=== PATIENT | male | born 1970 | race Caucasian/White ===

== ENCOUNTER 2017-03-09 15:08 | Inpatient (IN) | payer MEDICAID ==
[~2017-03-09] VITALS: Ht 177.8 cm; Wt 96.2 kg
[2017-03-09] MEDS ORDERED: HYDROmorphone 1 MG/ML, 1ML IVPush PRN (16:00)
[2017-03-09] MEDS ORDERED: ONDANSETRON 2MG/ML, 2ML IVPush ONE (16:00)
[2017-03-09] MEDS ORDERED: FAMOTIDINE 20 MG/2 ML IVP ONE (16:00)
[2017-03-09] MEDS ORDERED: SODIUM CHLORIDE FLUSH 10ML SYR IVF ONE (16:00)
[2017-03-09] MEDS ORDERED: THIAMINE 100 MG in SODIUM CHLORIDE 0.9% 50 ML IVPB ONE (16:00)
[2017-03-09] MEDS ORDERED: SODIUM CHLORIDE 0.9% 1,000ML IVBOLUS ONE (16:00)
[2017-03-09] MEDS ORDERED: LORazepam 2 MG/ML, 1ML IVPush ONE (16:00)
[2017-03-09] MEDS ORDERED: FAMOTIDINE 20 MG/2 ML ONE (16:08)
[2017-03-09] MEDS ORDERED: ONDANSETRON 2MG/ML, 2ML ONE (16:08)
[2017-03-09] MEDS ORDERED: LORazepam 2 MG/ML, 1ML ONE (16:10)
[2017-03-09 16:19] LABS: ASPARTATE AMINO TRANSFERASE 177 U/L (15-37); BLOOD UREA NITROGEN 14 mg/dL (7-18)
[2017-03-09 16:36] LABS: PATH.CAST-FLAG NOT PRESENT; SPERM-FLAG NOT PRESENT; SRC-FLAG NOT PRESENT; XTAL-FLAG NOT PRESENT; YLC-FLAG NOT PRESENT
[2017-03-09] MEDS: NS + 20MEQ KCL 1,000 ML IV SCH (16:43)
[2017-03-09] MEDS ORDERED: OXYcodone IR 5MG TABLET PO PRN (17:00)
[2017-03-09] MEDS ORDERED: ONDANSETRON 2MG/ML, 2ML IVP PRN (17:00)
[2017-03-09] MEDS ORDERED: hydrALAzine 20 MG/ML, 1ML IV PRN (17:00)
[2017-03-09] MEDS ORDERED: ACETAMINOPHEN 325 MG TABLET PO PRN (17:00)
[2017-03-09] MEDS ORDERED: POLYETHYLENE GLYCOL 17 GM PACKET PO PRN (17:00)
[2017-03-09] MEDS ORDERED: LORazepam 1MG TABLET PO PRN (17:00)
[2017-03-09] MEDS ORDERED: LORazepam 2 MG/ML, 1ML IV PRN (17:00)
[2017-03-09] MEDS ORDERED: ENALAPRILAT 1.25 MG/ML, 2ML IV PRN (17:00)
[2017-03-09] MEDS ORDERED: MORPHINE SULFATE 4 MG/ML, 1ML IVPush PRN (17:00)
[2017-03-09] MEDS ORDERED: ENOXAPARIN 40 MG/0.4 ML SQ SCH (17:00)
[2017-03-09] MEDS ORDERED: LABETALOL 5MG/ML, 20ML IVPush PRN (17:00)
[2017-03-09] MEDS ORDERED: DOCUSATE 100 MG CAPSULE PO PRN (17:00)
[2017-03-09] MEDS ORDERED: OMNIPAQUE 350 MG/ML, 100ML BOTTLE ONE (17:06)
[2017-03-09 17:57] VITALS: BP 138/86
[2017-03-09] MEDS: LORazepam 2 MG/ML, 1ML IV PRN ×3 (18:23→23:45)
[2017-03-09] MEDS: POTASSIUM CHLORIDE 20 MEQ, MAGNESIUM SULFATE 1 GM, THIAMINE 100 MG, FOLIC ACID 1 MG, MV... IV SCH (18:43)
[2017-03-09 19:35] VITALS: BP 139/83
[2017-03-09] MEDS: PANTOPRAZOLE 40 MG IV IVP SCH (23:46)
[2017-03-10 01:42] VITALS: BP 120/76
[2017-03-10] MEDS: NS + 20MEQ KCL 1,000 ML IV SCH ×3 (02:19→14:20)
[2017-03-10] MEDS: LORazepam 2 MG/ML, 1ML IV PRN ×3 (05:35→11:08)
[2017-03-10 05:57] LABS: BLOOD UREA NITROGEN 11 mg/dL (7-18)
[2017-03-10 06:09] LABS: ASPARTATE AMINO TRANSFERASE 152 U/L (15-37)
[2017-03-10 06:35] VITALS: BP 125/79
[2017-03-10] MEDS: PANTOPRAZOLE 40 MG IV IVP SCH ×2 (08:30→21:02)
[2017-03-10] MEDS: SENNA/DOCUSATE TABLET PO SCH (08:31)
[2017-03-10] MEDS: NICOTINE 14MG/24 HR PATCH.TD24 TD SCH (08:31)
[2017-03-10 12:30] VITALS: BP 143/93
[2017-03-10] MEDS: LORazepam 0.5MG TABLET PO PRN (13:13)
[2017-03-10 18:31] VITALS: BP 134/76
[2017-03-10] MEDS: POTASSIUM CHLORIDE 20 MEQ, MAGNESIUM SULFATE 1 GM, THIAMINE 100 MG, FOLIC ACID 1 MG, MV... IV SCH (18:35)
[2017-03-10] MEDS: LORazepam 1MG TABLET PO PRN (21:31)
[2017-03-11 00:46] VITALS: BP 125/80
[2017-03-11] MEDS ORDERED: POTASSIUM CHLORIDE 20 MEQ in SODIUM CHLORIDE 0.9% 1,000 ML IV ONE (01:30)
[2017-03-11] MEDS: LORazepam 2 MG/ML, 1ML IV PRN (02:18)
[2017-03-11 05:01] LABS: BLOOD UREA NITROGEN 8 mg/dL (7-18)
[2017-03-11 05:04] LABS: ASPARTATE AMINO TRANSFERASE 110 U/L (15-37)
[2017-03-11 06:45] VITALS: BP 127/82
[2017-03-11] MEDS: SENNA/DOCUSATE TABLET PO SCH (09:00)
[2017-03-11] MEDS: NICOTINE 14MG/24 HR PATCH.TD24 TD SCH (09:07)
[2017-03-11] MEDS: PANTOPRAZOLE 40 MG IV IVP SCH ×2 (09:07→19:40)
[2017-03-11] MEDS: LORazepam 0.5MG TABLET PO PRN (09:21)
[2017-03-11 13:10] VITALS: BP 136/80
[2017-03-11] MEDS: LORazepam 1MG TABLET PO PRN ×2 (15:05→19:40)
[2017-03-11] MEDS ORDERED: DIPHENHYDRAMINE 25 MG CAPSULE PO PRN (17:00)
[2017-03-11] MEDS: POTASSIUM CHLORIDE 20 MEQ TAB.ER.PRT PO SCH (17:45)
[2017-03-11 18:59] VITALS: BP 130/87
[2017-03-12 00:59] VITALS: BP 128/82
[2017-03-12 07:18] VITALS: BP 136/93
[2017-03-12] MEDS: POTASSIUM CHLORIDE 20 MEQ TAB.ER.PRT PO SCH (08:15)
[2017-03-12] MEDS: PANTOPRAZOLE 40 MG IV IVP SCH (08:15)
[2017-03-12] MEDS: SENNA/DOCUSATE TABLET PO SCH (08:15)
[2017-03-12] MEDS: NICOTINE 14MG/24 HR PATCH.TD24 TD SCH (08:15)
[2017-03-12] MEDS: LORazepam 1MG TABLET PO PRN (08:26)
[2017-03-12] MEDS ORDERED: PNEUMOCOCCAL 23 VACCINE IM-VACC ONE (13:00)
[2017-03-12] MEDS ORDERED: LORA-445 PO (13:14)
[2017-03-12] MEDS ORDERED: NICO1PAT4 TD (13:14)
[2017-03-12] MEDS ORDERED: OXYC5TAB3 PO (13:14)
== END 2017-03-12 14:02 | disposition home or self-care (01) | DRG 897 ==
LOC: ED 16:26 → EDIP 16:27 → SUATTDRO 16:30 → ED 17:00 → 3NE 17:45
PROVIDERS: ADMIT Family Medicine; ATTEND Family Medicine
DX: F10.239 Alcohol dependence with withdrawal, unspecified (principal); K29.20 Alcoholic gastritis without bleeding; F17.210 Nicotine dependence, cigarettes, uncomplicated; R13.10 Dysphagia, unspecified; Z87.11 Personal history of peptic ulcer disease; J02.9 Acute pharyngitis, unspecified
CPT/HCPCS: 36415; 74177; 80053; 81001; 83605; 83690; 83735; 85025; 87081; 87324; 87880; 93005; 96365; 96375; J2405; J3411; J3475; J3480; Q9967; C9113; J2060; J7030; Q0163; S0028

== ENCOUNTER 2017-03-17 10:45 | Emergency (ER) | payer MEDICAID ==
[~2017-03-17] VITALS: Ht 177.8 cm; Wt 96.1 kg
[~2017-03-17 10:45] MED LIST: LORA-445 PO; NICO1PAT4 TD; OXYC5TAB3 PO
[2017-03-17] MEDS ORDERED: SODIUM CHLORIDE 0.9% 1,000ML IVBOLUS ONE (12:00)
[2017-03-17] MEDS ORDERED: ONDANSETRON 2MG/ML, 2ML IVPush ONE (12:00)
[2017-03-17] MEDS ORDERED: LORazepam 2 MG/ML, 1ML IVPush ONE (12:00)
[2017-03-17] MEDS ORDERED: SODIUM CHLORIDE FLUSH 10ML SYR IVF ONE (12:00)
[2017-03-17] MEDS ORDERED: LORazepam 2 MG/ML, 1ML ONE (12:28)
[2017-03-17] MEDS ORDERED: ONDANSETRON 2MG/ML, 2ML ONE (12:28)
[2017-03-17 12:29] LABS: BLOOD UREA NITROGEN 13 mg/dL (7-18)
[2017-03-17 12:34] LABS: ASPARTATE AMINO TRANSFERASE 83 U/L (15-37)
[2017-03-17] MEDS ORDERED: OMNIPAQUE 350 MG/ML, 100ML BOTTLE ONE (13:37)
[2017-03-17 15:45] VITALS: BP 126/81
[2017-03-17] MEDS ORDERED: CHLORDIAZEPOXIDE 25 MG CAPSULE PO STA (15:56)
== END 2017-03-17 16:10 | disposition home or self-care (01) ==
LOC: ED 12:04
DX: R11.2 Nausea with vomiting, unspecified (principal); R19.7 Diarrhea, unspecified
CPT/HCPCS: 36415; 74174; 80053; 81003; 83605; 83690; 85025; 85610; 93005; 96361; 96374; 96375; 99285; J2060; J2405; J7030; Q9967

== ENCOUNTER 2018-07-16 13:56 | Observation (INO) | payer MEDICAID ==
[~2018-07-16] VITALS: Ht 177.8 cm; Wt 90.0 kg
[~2018-07-16 13:56] MED LIST changes: +NICO-486 TD; -NICO1PAT4 TD
[2018-07-16 15:01] LABS: BASOPHILS # (AUTO) 0.03 x10^3/uL (0-0.1); BASOPHILS % (AUTO) 0 % (0-1); EOSINOPHILS # (AUTO) 0.15 x10^3/uL (0-0.4); EOSINOPHILS % (AUTO) 2 % (1-7); LYMPHOCYTES # (AUTO) 1.72 x10^3/uL (1-3.4); LYMPHOCYTES % (AUTO) 23 % (22-44); MD NO; MEAN CORPUSCULAR VOLUME 99.9 fL (81-97); MONOCYTES # (AUTO) 0.69 x10^3/uL (0.2-0.8); MONOCYTES % (AUTO) 9 % (2-9); NEUTROPHILS # (AUTO) 4.86 x10^3/uL (1.8-6.8); NEUTROPHILS % (AUTO) 65 % (42-75); PLATELET COUNT 280 x10^3/uL (130-400); RED CELL DISTRIBUTION WIDTH 14.6 % (9.4-14.8)
[2018-07-16 15:12] LABS: ANION GAP 6 mmol/L (5-15); CHLORIDE 106 mmol/L (98-107); CREATININE 1.06 mg/dL (0.7-1.3); SALICYLATE LEVEL 3.6 mg/dL (2.8-20.0)
[2018-07-16 15:13] LABS: ACETAMINOPHEN < 2 mcg/mL (10-30)
[2018-07-16 16:24] LABS: AMPHETAMINE SCREEN, URINE Negative (Negative); BARBITURATE SCREEN, URINE Negative (Negative); BENZODIAZEPINE SCREEN, URINE Negative (Negative); CANNABINOID SCREEN, URINE Positive (Negative); COCAINE SCREEN, URINE Negative (Negative); METHADONE SCREEN, URINE Negative (Negative); OPIATE SCREEN, URINE Negative (Negative)
[2018-07-16] MEDS ORDERED: ACETAMINOPHEN 500 MG TABLET PO ONE (17:00)
[2018-07-16] MEDS ORDERED: ACETAMINOPHEN 500 MG TABLET ONE (17:41)
[2018-07-16] MEDS ORDERED: LORazepam 2 MG/ML, 1ML IM PRN (20:00)
[2018-07-16] MEDS ORDERED: NICOTINE 7 MG/24 HR PATCH.TD24 TD SCH (20:00)
[2018-07-16] MEDS ORDERED: LORazepam 1MG TABLET PO PRN (20:00)
[2018-07-16] MEDS ORDERED: ACETAMINOPHEN 325 MG TABLET PO PRN (20:00)
[2018-07-16] MEDS ORDERED: DOCUSATE 100 MG CAPSULE PO PRN (20:00)
[2018-07-16 20:31] LABS: FREE T4 (FREE THYROXINE) 0.88 ng/dL (0.76-1.46); THYROID STIMULATING HORMONE 1.56 mIU/L (0.358-3.740)
[2018-07-16 21:11] VITALS: BP 105/75
== END 2018-07-16 21:11 ==
LOC: ED 14:40 → EDIP 17:44
PROVIDERS: ADMIT Hospitalist; ATTEND Hospitalist
DX: R45.851 Suicidal ideations (principal); F10.10 Alcohol abuse, uncomplicated; F12.90 Cannabis use, unspecified, uncomplicated; F20.0 Paranoid schizophrenia; F17.210 Nicotine dependence, cigarettes, uncomplicated; F31.9 Bipolar disorder, unspecified; Z59.0 Homelessness; Z79.899 Other long term (current) drug therapy
CPT/HCPCS: 36415; 80048; 80307; 80329; 82040; 82306; 82607; 83735; 84439; 84443; 85025; 99285; G0378; G0480

== ENCOUNTER 2018-07-17 22:55 | Emergency (ER) | payer MEDICAID ==
[~2018-07-17] VITALS: Ht 170.2 cm; Wt 86.5 kg
[2018-07-17] MEDS ORDERED: KETOROLAC 30 MG/1 ML IM ONE (23:30)
[2018-07-17 23:32] LABS: BASOPHILS # (AUTO) 0.04 x10^3/uL (0-0.1); BASOPHILS % (AUTO) 1 % (0-1); EOSINOPHILS # (AUTO) 0.33 x10^3/uL (0-0.4); EOSINOPHILS % (AUTO) 6 % (1-7); LYMPHOCYTES # (AUTO) 1.64 x10^3/uL (1-3.4); LYMPHOCYTES % (AUTO) 28 % (22-44); MD NO; MEAN CORPUSCULAR HEMOGLOBIN 34.1 pg (27.5-34.5); MEAN CORPUSCULAR VOLUME 100.4 fL (81-97); MEAN PLATELET VOLUME 8.4 fL (7.4-10.4); MONOCYTES % (AUTO) 10 % (2-9); NEUTROPHILS # (AUTO) 3.17 x10^3/uL (1.8-6.8); NEUTROPHILS % (AUTO) 55 % (42-75); PLATELET COUNT 225 x10^3/uL (130-400); RED BLOOD COUNT 4.46 x10^6/uL (4.38-5.82); RED CELL DISTRIBUTION WIDTH 14.5 % (9.4-14.8)
[2018-07-17 23:41] LABS: ALANINE AMINOTRANSFERASE 116 U/L (12-78); ALBUMIN 3.6 g/dL (3.4-5.0); ANION GAP 5 mmol/L (5-15); CALCIUM 9.1 mg/dL (8.5-10.1); CHLORIDE 111 mmol/L (98-107); SALICYLATE LEVEL 3.7 mg/dL (2.8-20.0)
[2018-07-17 23:44] LABS: ALKALINE PHOSPHATASE 225 U/L (45-117); BILIRUBIN,TOTAL 0.2 mg/dL (0.2-1.0); CREATININE 0.89 mg/dL (0.7-1.3)
[2018-07-17 23:45] LABS: ACETAMINOPHEN < 2 mcg/mL (10-30)
[2018-07-17 23:47] LABS: TROPONIN I < 0.015 ng/mL (0.000-0.045)
[2018-07-17] MEDS ORDERED: KETOROLAC 30 MG/1 ML ONE (23:56)
[2018-07-18 00:03] VITALS: BP 105/70
[2018-07-18 00:27] LABS: AMPHETAMINE SCREEN, URINE Negative (Negative); BARBITURATE SCREEN, URINE Negative (Negative); BENZODIAZEPINE SCREEN, URINE Negative (Negative); CANNABINOID SCREEN, URINE Negative (Negative); COCAINE SCREEN, URINE Negative (Negative); METHADONE SCREEN, URINE Negative (Negative); OPIATE SCREEN, URINE Negative (Negative)
== END 2018-07-18 01:57 ==
LOC: ED 23:30
DX: S39.012A Strain of muscle, fascia and tendon of lower back, initial encounter (principal); R07.89 Other chest pain; Z00.01 Encounter for general adult medical examination with abnormal findings; F31.9 Bipolar disorder, unspecified; F20.9 Schizophrenia, unspecified; F17.200 Nicotine dependence, unspecified, uncomplicated; X58.XXXA Exposure to other specified factors, initial encounter; Y93.89 Activity, other specified; Y92.89 Other specified places as the place of occurrence of the external cause; Y99.8 Other external cause status
CPT/HCPCS: 36415; 71045; 80053; 80307; 80329; 84484; 85025; 93005; 96372; 99285; J1885; G0480

== ENCOUNTER 2020-01-26 05:15 | Emergency (ER) | payer SELFPAY ==
[~2020-01-26] VITALS: Ht 177.8 cm; Wt 85.0 kg
[2020-01-26] MEDS ORDERED: LORazepam 1MG TABLET ONE (05:38)
--- NOTE | 2020-01-26 05:52 | NUR ---
Pt presents to room stating he was having "black out" episodes prior to when he stopped drinking tonight. Pt denies any syncopal episodes since he stopped drinking. Pt initially resistant to changing into a gown.
[2020-01-26] MEDS ORDERED: LORazepam 1MG TABLET PO ONE (06:00)
[2020-01-26 06:07] LABS: BASOPHILS # (AUTO) 0.02 x10^3/uL (0-0.1); BASOPHILS % (AUTO) 0 % (0-1); EOSINOPHILS # (AUTO) 0.18 x10^3/uL (0-0.4); EOSINOPHILS % (AUTO) 3 % (1-7); LYMPHOCYTES # (AUTO) 2.34 x10^3/uL (1-3.4); LYMPHOCYTES % (AUTO) 45 % (22-44); MD NO; MEAN CORPUSCULAR HGB CONC 33.7 g/dL (33.2-36.2); MEAN CORPUSCULAR VOLUME 100.9 fL (81-97); MEAN PLATELET VOLUME 8.5 fL (7.4-10.4); MONOCYTES # (AUTO) 0.65 x10^3/uL (0.2-0.8); MONOCYTES % (AUTO) 12 % (2-9); NEUTROPHILS # (AUTO) 2.07 x10^3/uL (1.8-6.8); NEUTROPHILS % (AUTO) 39 % (42-75); PLATELET COUNT 160 x10^3/uL (130-400); RED BLOOD COUNT 4.16 x10^6/uL (4.38-5.82); RED CELL DISTRIBUTION WIDTH 15.3 % (9.4-14.8)
[2020-01-26 06:20] LABS: ALANINE AMINOTRANSFERASE 27 U/L (12-78); ALBUMIN 3.2 g/dL (3.4-5.0); ANION GAP 9 mmol/L (5-15); CALCIUM 8.2 mg/dL (8.5-10.1); CHLORIDE 112 mmol/L (98-107); CREATININE 0.75 mg/dL (0.7-1.3)
[2020-01-26 06:25] LABS: ALKALINE PHOSPHATASE 215 U/L (45-117); BILIRUBIN,TOTAL 0.4 mg/dL (0.2-1.0); TOTAL PROTEIN 6.5 g/dL (6.4-8.2); TROPONIN I < 0.015 ng/mL (0.000-0.045)
--- NOTE | 2020-01-26 06:55 | NUR ---
Report from [facility]ALL. Pt resting in bed, resps even and unlabored, NADN. Pt requesting to be left alone to sleep. Pt's room door shut per request.
--- NOTE | 2020-01-26 07:34 | NUR ---
Pt resting in bed, awakens easily to this RN calling his name. Pt states he is unable to ambulate at this time due to "just needing to relax for a little while". Pt refusing to sit up, refusing to ambulate. made aware. Pt to be dc'd home.
--- NOTE | 2020-01-26 07:56 | NUR ---
Pt continues to refuse to ambulate or sit up. Security contacted to ensure staff safety for pt dc. Pt A&Ox4, able to dress self fully and ambulate out of unit with steady gait accompanied by security.
[2020-01-26 07:57] VITALS: BP 104/67
== END 2020-01-26 07:58 | disposition home or self-care (01) ==
LOC: ED 06:22
DX: R55 Syncope and collapse (principal); F10.220 Alcohol dependence with intoxication, uncomplicated; F10.239 Alcohol dependence with withdrawal, unspecified; Y90.9 Presence of alcohol in blood, level not specified
CPT/HCPCS: 36415; 80053; 80307; 84484; 85025; 93005; 99284

== ENCOUNTER 2020-07-14 18:23 | Emergency (ER) | payer MEDICAID ==
[~2020-07-14] VITALS: Ht 177.8 cm; Wt 80.8 kg
--- NOTE | 2020-07-14 18:47 | NUR ---
PT IN ROOM, DRESSED IN GOWN. RESTING WITH NO ISSUES, VITALS WNL, RESPIRATIONS 12. WHEN ASKED ABOUT HIS SHORTNESS OF BREATH, PT STATES "WELL, YEA, I GUESS, BUT REALLY I'M HERE ABOUT DETOX." PT REPORTS DAILY BINGE DRINKING FOR THE PAST 6 MONTHS, STATES HE HAD A SINGLE BEER TODAY AFTER HE STARTED TO "GET THE SHAKES". PT REQUESTING MEDICATION TO HELP WITH DETOX. DENIES ANY FURTHER NEEDS OR CONCERNS. CALL LIGHT IN REACH.
[2020-07-14] MEDS ORDERED: THIAMINE 100MG TABLET PO ONE (19:00)
[2020-07-14 19:13] LABS: BASOPHILS # (AUTO) 0.02 x10^3/uL (0-0.1); BASOPHILS % (AUTO) 1 % (0-1); EOSINOPHILS # (AUTO) 0.14 x10^3/uL (0-0.4); EOSINOPHILS % (AUTO) 3 % (1-7); LYMPHOCYTES # (AUTO) 1.42 x10^3/uL (1-3.4); LYMPHOCYTES % (AUTO) 32 % (22-44); MD NO; MEAN CORPUSCULAR HGB CONC 33.7 g/dL (33.2-36.2); MEAN CORPUSCULAR VOLUME 103.8 fL (81-97); MEAN PLATELET VOLUME 8.1 fL (7.4-10.4); MONOCYTES # (AUTO) 0.58 x10^3/uL (0.2-0.8); MONOCYTES % (AUTO) 13 % (2-9); NEUTROPHILS # (AUTO) 2.26 x10^3/uL (1.8-6.8); NEUTROPHILS % (AUTO) 51 % (42-75); PLATELET COUNT 194 x10^3/uL (130-400); RED BLOOD COUNT 4.16 x10^6/uL (4.38-5.82); RED CELL DISTRIBUTION WIDTH 14.5 % (9.4-14.8)
[2020-07-14 19:24] LABS: ALBUMIN 3.7 g/dL (3.4-5.0); ANION GAP 9 mmol/L (5-15); CALCIUM 9.1 mg/dL (8.5-10.1); CHLORIDE 110 mmol/L (98-107); CREATININE 0.77 mg/dL (0.7-1.3)
[2020-07-14 20:27] VITALS: BP 128/80
== END 2020-07-14 20:51 | disposition home or self-care (01) ==
LOC: ED 20:45
DX: F10.220 Alcohol dependence with intoxication, uncomplicated (principal); R06.02 Shortness of breath; R94.31 Abnormal electrocardiogram [ECG] [EKG]; J69.0 Pneumonitis due to inhalation of food and vomit; Y90.9 Presence of alcohol in blood, level not specified
CPT/HCPCS: 36415; 71045; 80048; 82040; 85025; 93005; 99285

== ENCOUNTER 2020-07-15 02:22 | Emergency (ER) | payer MEDICAID ==
[~2020-07-15] VITALS: Ht 177.8 cm; Wt 77.0 kg
--- NOTE | 2020-07-15 02:30 | NUR ---
PT AMBULATED TO ROOM WITH A STEADY GAIT TO ROOM. VSS. PA AT BEDSIDE
[2020-07-15 02:37] VITALS: BP 131/76
[2020-07-15] MEDS ORDERED: LORazepam 1MG TABLET PO ONE (03:00)
[2020-07-15] MEDS ORDERED: LORazepam 1MG TABLET ONE (03:15)
--- NOTE | 2020-07-15 04:27 | NUR ---
PT GIVEN DISCHARGE PAPERS AND OFFERED A CAB VOUCHER. PT REFUSED VOUCHER AND SAID HE DID NOT WANT TO FOLLOW UP OUT PATIENT. SECURITY CALLED TO ASSIST PT WITH DISCHARGE.
== END 2020-07-15 04:36 | disposition home or self-care (01) ==
LOC: ED 04:00
DX: F10.120 Alcohol abuse with intoxication, uncomplicated (principal); R25.1 Tremor, unspecified; Y90.9 Presence of alcohol in blood, level not specified; F17.210 Nicotine dependence, cigarettes, uncomplicated; Z72.9 Problem related to lifestyle, unspecified; Z87.11 Personal history of peptic ulcer disease
CPT/HCPCS: 99283